=== PATIENT | male | born 1975 | race Caucasian/White ===

== ENCOUNTER 2019-11-29 06:48 | Day surgery (SDC) | payer BC, OTHER ==
[~2019-11-29] VITALS: Ht 188 cm; Wt 107.0 kg
[2019-11-29 07:56] VITALS: BP 141/96
[2019-11-29] MEDS ORDERED: MIRALAX17 GM PO (08:59)
[2019-11-29] MEDS ORDERED: OXYCODONE HCL 55 MG PO (08:59)
[2019-11-29] MEDS ORDERED: IBUPROFEN 200200 M1 PO (08:59)
[2019-11-29] MEDS ORDERED: COLACE 100 MG100 MG PO (08:59)
[2019-11-29] MEDS ORDERED: ACETAMINOPHEN325 M1 PO (08:59)
[2019-11-29 10:20] VITALS: BP 141/96
--- NOTE | 2019-12-03 13:07 | PATH ---
[facility] [address] [place] [address] PATHOLOGY RPT PROCEDURE Name: SHARDA URIBE Room #: DEP [facility]..#: [id number] Admission: 11/29/19 Date of : 71 Discharge: 11/29/19 Report #: [id number] Path Case #: [id number] [facility] Accession Number: [id number] . 01 Material submitted: . neck - POSTERIOR NECK MASS. Modifiers: posterior . 01 Clinical history: . Localized swelling, mass and lump, neck . 02 Diagnosis: Soft tissue, "posterior neck mass", excision: - Lipoma. (ANNETTE:addie; 11/30/2019) [facility] 11/30/2019 1325 Local . 02 Electronically signed: . Leif Brown MD, Pathologist NPI- [id number] . 01 Gross description: . Received in formalin labeled "Fende, Sharda, posterior neck mass" are two irregular portions of yellow-salazar soft tissue measuring 5.2 x 3.4 x 1.9 cm (inked black) and 2.7 x 2.6 x 0.5 cm (inked blue). Upon sectioning, the cut surfaces are yellow-salazar and homogeneous without hemorrhage or necrosis. [employer] Plater sections are submitted in cassettes A1-A3. ([facility] [place]; 11/29/2019) [facility] 11/29/2019 1633 [facility] . 02 Pathologist provided ICD-10: D17.79 . 02 CPT . 481253 Specimen Comment: A courtesy copy of this report has been sent to [phone], [phone] Specimen Comment: [id number] Specimen Comment: Report sent to / DR PINEDA Performed at: [address], [place] [id number] MD Maxim Thompson MD Phone: [phone] Performed at: [address] [id number] MD Alba Rodriguez MD Phone: [phone]
== END 2019-11-29 10:50 | disposition home or self-care (01) ==
LOC: TBA 06:48 → OR 06:48 → TBA 06:50 → OR 09:11
DX: D17.0 Benign lipomatous neoplasm of skin and subcutaneous tissue of head, face and neck (principal); Z98.890 Other specified postprocedural states
CPT/HCPCS: 50010; 50101; 50386; 50417; 54118; 56524; 62110; 62900; 70005